=== PATIENT | female | born 1985 | race Caucasian/White ===

== ENCOUNTER 2020-12-14 03:47 | Emergency (ER) | payer OTHER ==
[2020-12-14 05:06] LABS: HEMOGLOBIN 16.2 gm/dl (12.3-15.3); RED BLOOD COUNT 5.13 M/UL (4.00-5.10); WHITE BLOOD COUNT 10.3 K/UL (4.5-11.0)
[2020-12-14 05:26] LABS: BUN/CREATININE RATIO 25 (0-10)
== END 2020-12-14 06:24 | disposition home or self-care (01) ==
LOC: ER1 03:47
PROVIDERS: Family Medicine
DX: R07.9 Chest pain, unspecified (principal); F17.210 Nicotine dependence, cigarettes, uncomplicated; I10 Essential (primary) hypertension; I25.10 Atherosclerotic heart disease of native coronary artery without angina pectoris; Z20.822 Contact with and (suspected) exposure to COVID-19; Z88.2 Allergy status to sulfonamides; Z90.710 Acquired absence of both cervix and uterus
CPT/HCPCS: 71045; 80053; 82550; 82553; 83874; 84484; 85025; 93005; 99285; U0002

== ENCOUNTER 2022-06-02 14:27 | Emergency (ER) | payer OTHER ==
[2022-06-02 15:54] LABS: HEMOGLOBIN 16.3 gm/dl (12.3-15.3); RED BLOOD COUNT 5.04 M/UL (4.00-5.10); WHITE BLOOD COUNT 9.4 K/UL (4.5-11.0)
[2022-06-02 16:09] LABS: BUN/CREATININE RATIO 17 (0-10)
[2022-06-02] MEDS ORDERED: PENVEE K 500 M500 MG PO (16:22)
[2022-06-02] MEDS ORDERED: PAROEX473 ML MM (16:22)
[2022-06-02] MEDS ORDERED: IBU800 MG PO (16:22)
== END 2022-06-02 14:52 | disposition home or self-care (01) ==
LOC: ER1 14:27
PROVIDERS: Physician Assistant Medical
DX: K02.9 Dental caries, unspecified (principal); Z20.822 Contact with and (suspected) exposure to COVID-19; F17.210 Nicotine dependence, cigarettes, uncomplicated; Z88.2 Allergy status to sulfonamides
CPT/HCPCS: 80053; 85025; 99283; U0002